=== PATIENT | female | born 1945 | race Caucasian/White ===

== ENCOUNTER 2020-08-22 13:55 | Emergency (ER) | payer MEDICARE ==
[2020-08-22 14:02] VITALS: PULSE 68
--- NOTE | 2020-08-22 14:27 | ED ---
Lower Extremity Injury HPI - General Chief Complaint: Extremity Injury, Lower Stated Complaint: Lft leg pain Time Seen by Provider: 08/22/20 14:06 Source: patient Mode of arrival: wheelchair Limitations: no limitations - History of Present Illness Initial Comments: 75 -year-old female presents to emergency with chief complaint of pain in leg. Patient reports she was gardening and bending over when she felt sudden pop in the left popliteal region followed by a sharp shooting pain. Reports the pain does seem to radiate distally towards the calf. Reports limited range of motion with full extension and flexion. She denies any paresthesias. Denies any direct injuries to the knee. Denies taking medication to alleviate the symptoms. She does report mild swelling, erythema or ecchymosis to the left knee. States she went to an urgent care was advised to come to emergency department for further evaluation. - Related Data Home Medications Medication Instructions Recorded Confirmed Levothyroxine Sodium [Synthroid] 137 mcg PO DAILY 09/25/13 08/22/20 Apixaban [Eliquis] 5 mg PO BID 08/22/20 08/22/20 Cholecalciferol [Vitamin D3 (25 25 mcg PO DAILY 08/22/20 08/22/20 Mcg = 1000 Iu)] Omeprazole 20 mg PO DAILY 08/22/20 08/22/20 Rosuvastatin [Crestor] 10 mg PO HS 08/22/20 08/22/20 Previous Rx's Medication Instructions Recorded Famotidine [Pepcid] 20 mg PO BID #30 tablet 09/25/13 Allergies Allergy/AdvReac Type Severity Reaction Status Date / Time No Known Allergies Allergy Verified 08/22/20 14:55 Review of Systems ROS Statement: Those systems with pertinent positive or pertinent negative responses have been documented in the HPI. ROS Other: All systems not noted in ROS Statement are negative. Past Medical History Past Medical History: GERD/Reflux, Hyperlipidemia, Thyroid Disorder History of Any Multi-Drug Resistant Organisms: None Reported Past Surgical History: Cholecystectomy, Hysterectomy Past Anesthesia/Blood Transfusion Reactions: No Reported Reaction Past Psychological History: No Psychological Hx Reported Smoking Status: Never smoker Past Alcohol Use History: Occasional Past Drug Use History: None Reported General Exam Limitations: no limitations General appearance: alert, in no apparent distress, obese Head exam: Present: atraumatic, normocephalic, normal inspection Eye exam: Present: normal appearance, PERRL, EOMI Pupils: Present: normal accommodation ENT exam: Present: normal exam, normal oropharynx, mucous membranes moist Neck exam: Present: normal inspection, full ROM. Absent: tenderness, meningismus Respiratory exam: Present: normal lung sounds bilaterally. Absent: respiratory distress, wheezes, rales Cardiovascular Exam: Present: regular rate, normal rhythm, normal heart sounds. Absent: systolic murmur Extremities exam: Present: normal inspection (Mild swelling around the left knee), tenderness (Popliteal left calf tenderness), normal capillary refill, calf tenderness (Left calf), other (palpable DP and PT bilaterally). Absent: full ROM (Limited range of motion with full flexion and extension), pedal edema, joint swelling Back exam: Present: normal inspection, full ROM. Absent: tenderness Neurological exam: Present: alert, oriented X3 Psychiatric exam: Present: normal affect, normal mood Skin exam: Present: warm, dry, intact, normal color Course Vital Signs 08/22/20 13:59 Temperature 97.5 F L Pulse Rate 68 Respiratory 18 Rate Blood Pressure 163/80 O2 Sat by Pulse 99 Oximetry Medical Decision Making - Medical Decision Making 75 -year-old female presents to emergency with chief complaint of pain in leg. On physical examination, patient is neurovascularly intact. Pinpoint tenderness in the popliteal region of the knee. No signs of infection at this time. I suspect the patient ruptured a Martines cyst. However, she was concerned for potential blood clot. Ultrasound obtained shows no signs of DVT. Patient was given Tylenol for pain. She is currently anticoagulated. Return parameters were discussed the patient is understanding and agreeable. Case discussed with Disposition Clinical Impression: Left knee pain Disposition: HOME SELF-CARE Condition: Stable Instructions (If sedation given, give patient instructions): Bakers Cyst (ED), Knee Pain (ED) Additional Instructions: Please return to the Emergency Department if symptoms worsen or any other concerns. Is patient prescribed a controlled substance at d/c from ED?: No Referrals: Darion Anderson MD [Primary Care Provider] - 1-2 days Allen Bal MD [STAFF PHYSICIAN] - 1-2 days Time of Disposition: 15:42
[2020-08-22] MEDS ORDERED: ACETAMINOPHEN TAB 325 MG TAB PO STA (14:32)
--- NOTE | 2020-08-22 15:26 | US ---
EXAMINATION TYPE: US venous doppler duplex LE LT DATE OF EXAM: 08/22/2020 3:10 PM COMPARISON: NONE CLINICAL HISTORY: r/o dvt. [place] "pop" behind left knee when gardening the other day SIDE PERFORMED: Left TECHNIQUE: The lower extremity deep venous system is examined utilizing real time linear array sonog kaylyn with graded compression, doppler sonography and color-flow sonography. VESSELS IMAGED: Common Femoral Vein Deep Femoral Vein Greater Saphenous Vein * Femoral Vein Popliteal Vein Small Saphenous Vein * Proximal Calf Veins (* superficial vessels) patient unable to tolerate pressure within dist femoral vein so vein did not collapse Left Leg: Negative for DVT IMPRESSION: No evidence for DVT.
[2020-08-22 16:06] VITALS: BP 149/78; RESP 17; TEMP 98
== END 2020-08-22 16:41 | disposition home or self-care (01) ==
LOC: EC 13:55
DX: M25.562 Pain in left knee (principal); M79.662 Pain in left lower leg; M79.89 Other specified soft tissue disorders; E78.5 Hyperlipidemia, unspecified; K21.9 Gastro-esophageal reflux disease without esophagitis; Z79.01 Long term (current) use of anticoagulants; Z79.899 Other long term (current) drug therapy
CPT/HCPCS: 99284